=== PATIENT | female | born 1995 | race Caucasian/White ===

== ENCOUNTER 2017-08-20 11:15 | Emergency (ER) | payer SELFPAY ==
[2017-08-20] MEDS ORDERED: TORADOL IM ONE (13:54)
[2017-08-20] MEDS ORDERED: CLEOCIN PO ONE (14:00)
--- NOTE | 2017-08-20 14:02 | Emergency Department Report ---
ED ENT HPI - General Chief complaint: Dental/Oral Stated complaint: RIGHT SIDE FACIAL SWELLING Time Seen by Provider: 08/20/17 13:36 Source: patient Mode of arrival: Ambulatory Limitations: No Limitations - History of Present Illness Initial comments: 18-year-old female with no significant past medical history presents to the hospital complaining of a chronic tooth fracture to be waking up this morning with right-sided jaw swelling Progressively worsened throughout the day. Patient states she has 5/10 pain to this area that is worse with palpation. Her employer sent her to the ER to be evaluated. No complaints of fever, difficulty breathing, or difficulty swallowing. - Related Data Previous Rx's Medication Instructions Recorded Last Taken Type Clindamycin [Clindamycin CAP] 450 mg PO Q8HR 10 Days capsule 08/20/17 Unknown Rx Ibuprofen [Motrin] 800 mg PO Q8HR PRN #30 tablet 08/20/17 Unknown Rx traMADol [Ultram 50 MG tab] 50 mg PO Q6HR PRN #20 tablet 08/20/17 Unknown Rx Allergies Allergy/AdvReac Type Severity Reaction Status Date / Time No Known Allergies Allergy Unverified 08/20/17 11:51 ED Dental HPI - General Chief complaint: Dental/Oral Stated complaint: RIGHT SIDE FACIAL SWELLING Time Seen by Provider: 08/20/17 13:36 Source: patient Mode of arrival: Ambulatory Limitations: No Limitations - Related Data Previous Rx's Medication Instructions Recorded Last Taken Type Clindamycin [Clindamycin CAP] 450 mg PO Q8HR 10 Days capsule 08/20/17 Unknown Rx Ibuprofen [Motrin] 800 mg PO Q8HR PRN #30 tablet 08/20/17 Unknown Rx traMADol [Ultram 50 MG tab] 50 mg PO Q6HR PRN #20 tablet 08/20/17 Unknown Rx Allergies Allergy/AdvReac Type Severity Reaction Status Date / Time No Known Allergies Allergy Unverified 08/20/17 11:51 ED Review of Systems ROS: Stated complaint: RIGHT SIDE FACIAL SWELLING Other details as noted in HPI Comment: All other systems reviewed and negative ED Past Medical Hx - Past Medical History Previous Medical History?: No - Surgical History Past Surgical History?: No - Social History Smoking Status: Former Smoker Substance Use Type: Alcohol - Medications Home Medications: Home Medications Medication Instructions Recorded Confirmed Last Taken Type Clindamycin [Clindamycin CAP] 450 mg PO Q8HR 10 Days capsule 08/20/17 Unknown Rx Ibuprofen [Motrin] 800 mg PO Q8HR PRN #30 tablet 08/20/17 Unknown Rx traMADol [Ultram 50 MG tab] 50 mg PO Q6HR PRN #20 tablet 08/20/17 Unknown Rx ED Physical Exam - General Limitations: No Limitations - Other Other exam information: General: No limitations, patient is alert in no acute distress Head exam: Atraumatic, normocephalic Eyes exam: Normal appearance, pupils equal reactive to light, extraocular movements intact ENT: Moist mucous membrane, tooth number 29 fractured, tooth number 30 with carries, no gum swelling, swelling to mandibular area in this region with tenderness. Neck exam: Normal inspection, full range of motion, no meningismus nontender Respiratory exam: Clear to auscultation bilateral, no wheezes, rales, crackles Cardiovascular: Normal rate and rhythm, normal heart sounds Abdomen: Soft, nondistended, and nontender, with normal bowel sounds, no rebound, or guarding Extremity: Full range of motion normal inspection no deformity Back: Normal Inspection, full range of motion, no tenderness Neurologic: Alert, oriented x3, cranial nerves intact, no motor or sensory deficit Psychiatric: normal affect, normal mood Skin: Warm, dry, intact ED Course Vital Signs 08/20/17 11:47 Temperature 98.9 F Pulse Rate 77 Respiratory 14 Rate Blood Pressure 103/62 O2 Sat by Pulse 100 Oximetry ED Medical Decision Making - Medical Decision Making dental abscess with facial swelling no systemic symptoms Nontoxic appearing Given clindamycin and Toradol in ED Be discharged on clindamycin and additional pain medication ([employer] mitch downloaded by pt) Dental referral will be suggeted - Differential Diagnosis dental carries, abscess, tooth fxr Critical Care Time: No Critical care attestation.: If time is entered above; I have spent that time in minutes in the direct care of this critically ill patient, excluding procedure time. ED Disposition Clinical Impression: Dental abscess Disposition: - TO HOME OR SELFCARE Is pt being admited?: No Does the pt Need Aspirin: No Condition: Stable Instructions: Dental Abscess (ED) Additional Instructions: Follow up with the dental clinic provided or with the dentist of your choice. The antibiotics as prescribed. Please return if symptoms worsen as indicated by your discharge instructions. Prescriptions: Clindamycin [Clindamycin CAP] 450 mg PO Q8HR 10 Days capsule Ibuprofen [Motrin] 800 mg PO Q8HR PRN #30 tablet PRN Reason: Pain traMADol [Ultram 50 MG tab] 50 mg PO Q6HR PRN #20 tablet PRN Reason: Pain Referrals: [facility] [Outside] - 3-5 Days Time of Disposition: 14:03
[2017-08-20 14:27] VITALS: BP 106/66
== END 2017-08-20 14:45 | disposition home or self-care (01) ==
LOC: ED 11:15
DX: K04.7 Periapical abscess without sinus (principal)
CPT/HCPCS: 96372; 99282; J1885

== ENCOUNTER 2019-07-16 16:24 | Emergency (ER) | payer SELFPAY ==
[2019-07-16 16:49] VITALS: BP 101/69
[2019-07-16 17:20] LABS: Basophils % (Auto) 0.5 % (0.0-1.8); Eosinophils % (Auto) 0.4 % (0.0-4.3); Hematocrit 37.9 % (30.3-42.9); Lymphocytes # (Auto) 1.5 K/mm3 (1.2-5.4); Lymphocytes % (Auto) 15.5 % (13.4-35.0); Mean Corpuscular HGB Conc 34 % (30-34); Mean Corpuscular Volume 91 fl (79-97); Monocytes # (Auto) 0.5 K/mm3 (0.0-0.8); Monocytes % (Auto) 4.9 % (0.0-7.3); Platelet Count 352 K/mm3 (140-440); Red Blood Count 4.19 M/mm3 (3.65-5.03); Red Cell Distribution Width 13.1 % (13.2-15.2)
[2019-07-16 17:32] LABS: Bilirubin,Urine NEG (Negative); Blood,Urine NEG (Negative); Color,Urine Yellow (Yellow); Mucus,Urine 3+ /HPF; Protein,Urine <15 mg/dL mg/dL (Negative); Urobilinogen,Urine < 2.0 mg/dL (<2.0)
[2019-07-16 17:40] LABS: BUN/Creatinine Ratio 22; Blood Urea Nitrogen 11 mg/dL (7-17); Calcium 9.6 mg/dL (8.4-10.2); Hemolysis Index 16
--- NOTE | 2019-07-16 17:40 | Emergency Department Report ---
ED Abdominal Pain HPI - General Chief Complaint: Abdominal Pain Stated Complaint: STOMACH PAIN PUI?: No Time Seen by Provider: 07/16/19 17:39 Source: patient Mode of arrival: Ambulatory Limitations: No Limitations - History of Present Illness Initial Comments: Patient is a 23-year-old female she comes to the ER complaining of nausea and vomiting. Her last menstrual cycle was June 03. She denies vaginal bleeding or discharge. She has no abdominal pain. She does states that she has been nauseated and is vomiting in the emergency room. -: days(s) Severity scale (0 -10): 7 Associated Symptoms: denies other symptoms, nausea, vomiting. denies: chills, constipation, dysuria, hematemesis, hematochezia, melena, hematuria, anorexia, syncope - Related Data Previous Rx's Medication Instructions Recorded Last Taken Type Ondansetron [Zofran Odt] 4 mg PO Q8HR PRN #10 tab.rapdis 07/16/19 Unknown Rx Allergies Allergy/AdvReac Type Severity Reaction Status Date / Time No Known Allergies Allergy Unverified 08/20/17 11:51 ED Review of Systems ROS: Stated complaint: STOMACH PAIN Other details as noted in HPI Comment: All other systems reviewed and negative ED Past Medical Hx - Past Medical History Previous Medical History?: No - Surgical History Past Surgical History?: No - Family History Family history: no significant - Social History Smoking Status: Never Smoker Substance Use Type: None - Medications Home Medications: Home Medications Medication Instructions Recorded Confirmed Last Taken Type Ondansetron [Zofran Odt] 4 mg PO Q8HR PRN #10 tab.rapdis 07/16/19 Unknown Rx ED Physical Exam - General Limitations: No Limitations General appearance: alert, in no apparent distress - Head Head exam: Present: atraumatic, normocephalic - Eye Eye exam: Present: normal appearance - ENT ENT exam: Present: mucous membranes moist - Neck Neck exam: Present: normal inspection - Respiratory Respiratory exam: Present: normal lung sounds bilaterally. Absent: respiratory distress - Cardiovascular Cardiovascular Exam: Present: regular rate, normal rhythm. Absent: systolic murmur, diastolic murmur, rubs, gallop - GI/Abdominal GI/Abdominal exam: Present: soft, normal bowel sounds - Extremities Exam Extremities exam: Present: normal inspection - Back Exam Back exam: Present: normal inspection - Neurological Exam Neurological exam: Present: alert, oriented X3 - Psychiatric Psychiatric exam: Present: normal affect, normal mood - Skin Skin exam: Present: warm, dry, intact, normal color. Absent: rash ED Course Vital Signs 07/16/19 16:48 Temperature 97.9 F Pulse Rate 91 H Respiratory 18 Rate Blood Pressure 101/69 [Right] O2 Sat by Pulse 100 Oximetry ED Medical Decision Making - Lab Data Result diagrams: 07/16/19 16:58 07/16/19 16:58 - Medical Decision Making Labs 07/16/19 07/16/19 07/16/19 16:58 16:58 16:58 WBC 9.9 RBC 4.19 Hgb 13.0 Hct 37.9 MCV 91 MCH 31 MCHC 34 RDW 13.1 L Plt Count 352 Lymph % (Auto) 15.5 [place] % (Auto) 4.9 Eos % (Auto) 0.4 Baso % (Auto) 0.5 Lymph # 1.5 [place] # 0.5 Eos # 0.0 Baso # 0.0 Seg Neutrophils % 78.7 H Seg Neutrophils # 7.8 H Sodium 134 L Potassium 4.2 Chloride 99.8 Carbon Dioxide 22 Anion Gap 16 BUN 11 Creatinine 0.5 L Estimated GFR > 60 BUN/Creatinine Ratio 22 Glucose 97 Calcium 9.6 HCG, Quant 15985 H Urine Color Urine Turbidity Urine pH Ur Specific [place] Urine Protein Urine Glucose (UA) Urine Ketones Urine Blood Urine Nitrite Urine Bilirubin Urine Urobilinogen Ur Leukocyte Esterase Urine WBC (Auto) Urine RBC (Auto) U Epithel Cells (Auto) Urine Mucus 07/16/19 17:07 WBC RBC Hgb Hct MCV MCH MCHC RDW Plt Count Lymph % (Auto) [place] % (Auto) Eos % (Auto) Baso % (Auto) Lymph # [place] # Eos # Baso # Seg Neutrophils % Seg Neutrophils # Sodium Potassium Chloride Carbon Dioxide Anion Gap BUN Creatinine Estimated GFR BUN/Creatinine Ratio Glucose Calcium HCG, Quant Urine Color Yellow Urine Turbidity Cloudy Urine pH 7.0 Ur Specific [place] 1.024 Urine Protein <15 mg/dl Urine Glucose (UA) Neg Urine Ketones 80 Urine Blood Neg Urine Nitrite Neg Urine Bilirubin Neg Urine Urobilinogen < 2.0 Ur Leukocyte Esterase Tr Urine WBC (Auto) 3.0 Urine RBC (Auto) 3.0 U Epithel Cells (Auto) 25.0 H Urine Mucus 3+ Vital Signs 07/16/19 16:48 Temperature 97.9 F Pulse Rate 91 H Respiratory 18 Rate Blood Pressure 101/69 [Right] O2 Sat by Pulse 100 Oximetry Labs noted. hCG noted. Last menstrual period approximately 6 weeks ago. Patient has no abdominal pain. She has no back pain. She has no vaginal bleedi ng. Patient told that she was . She states this is her first . Patient was given a liter of normal saline, Zofran and Rocephin in the emergency room. Given her and only trace leukocytes will defer UTI treatment to [facility]. Patient has no dysuria, chills, fever, back pain. Patient is taking p.o. prior to discharge. Patient being discharged home with [facility] follow-up in 48 hours. Patient verbalizes understanding of discharge plan of care - Differential Diagnosis Rule out , UTI Critical care attestation.: If time is entered above; I have spent that time in minutes in the direct care of this critically ill patient, excluding procedure time. ED Disposition Clinical Impression: , Vomiting affecting Disposition: [id number] TO HOME OR SELFCARE Is pt being admited?: No Does the pt Need Aspirin: No Condition: Stable Instructions: (ED), Abdominal Pain (ED) Additional Instructions: MED ORDERED TODAY FOLLOW UP WITH OBGYN IN 48 HOURS TYLENOL FOR PAIN AVOID ALCOHOL, DRUGS OR SMOKING DIET TOLERATED Prescriptions: Ondansetron [Zofran Odt] 4 mg PO Q8HR PRN #10 tab.rapdis PRN Reason: Vomiting Referrals: ALEXIA HERNÁNDEZ MD [Staff Physician] - 3-5 Days Time of Disposition: 18:40
[2019-07-16] MEDS ORDERED: cefTRIAXone/NS 1 GM/50 ML 1 GM/50 ML BAG IV ONE (17:43)
[2019-07-16] MEDS ORDERED: SODIUM CHLORIDE 0.9% 1000 ML 1,000 ML IV ONE (17:43)
[2019-07-16] MEDS ORDERED: ONDANSETRON 4 MG/2 ML INJ IV ONE (17:48)
== END 2019-07-16 18:56 | disposition home or self-care (01) ==
LOC: ED 16:24
DX: O21.9 Vomiting of pregnancy, unspecified (principal); Z79.899 Other long term (current) drug therapy; Z3A.01 Less than 8 weeks gestation of pregnancy
CPT/HCPCS: 36415; 80048; 81001; 84702; 85025; 96365; 96375; 99283; J0696; J2405; J7030

== ENCOUNTER 2020-06-25 18:10 | Emergency (ER) | payer MEDICAID | END 2020-06-25 19:33 | disposition left against medical advice (07) | LOC: ED 18:10 | DX: M25.532 Pain in left wrist (principal); Z53.21 Procedure and treatment not carried out due to patient leaving prior to being seen by health care provider ==